=== PATIENT | female | born 1935 | race Caucasian/White ===

== ENCOUNTER 2018-08-09 14:18 | Emergency (ER) | payer MEDICARE, BC ==
[2018-08-09] MEDS ORDERED: IPRATROPIUM-ALBUTEROL 3 ML NEB INHALATION STA (15:26)
[2018-08-09] MEDS ORDERED: predniSONE 20 MG TAB PO STA (15:26)
--- NOTE | 2018-08-09 15:32 | ED ---
General Adult HPI - General Chief complaint: Upper Respiratory Infection Stated complaint: Cough Time Seen by Provider: 08/09/18 15:18 Source: patient Mode of arrival: ambulatory Limitations: no limitations - History of Present Illness Initial comments: Patient is an 83-year-old female presents with a chief complaint of a cough. Uses been going on for about a week. She states that she thinks she caught it from her grandson, and that there is been upper respiratory illness being passed around the household. Patient states that she has not had any fevers or difficulty breathing. She has tried Zyrtec and Robitussin for relief. Patient denies any chest pain or dyspnea, she denies abdominal pain, nausea or vomiting. Patient does not take any medications at home and does not have any known ALLERGIES patient states that she is admitted every day smoker, less than half a pack per day. - Related Data Home Medications Medication Instructions Recorded Confirmed guaiFENesin-DM 100-10MG/5ML 10 ml PO Q6H PRN 08/09/18 08/09/18 [Robitussin DM] Previous Rx's Medication Instructions Recorded Albuterol Inhaler [Ventolin Hfa 1 - 2 puff INHALATION Q4H #1 08/09/18 Inhaler] inhaler Azithromycin [Zithromax] 250 mg PO DIRECTED #6 tab 08/09/18 predniSONE 60 mg PO DAILY #12 tab 08/09/18 Allergies Allergy/AdvReac Type Severity Reaction Status Date / Time No Known Allergies Allergy Verified 08/09/18 15:50 Review of Systems ROS Statement: Those systems with pertinent positive or pertinent negative responses have been documented in the HPI. ROS Other: All systems not noted in ROS Statement are negative. Respiratory: Reports: cough. Denies: dyspnea Past Medical History Past Medical History: No Reported History History of Any Multi-Drug Resistant Organisms: None Reported Past Surgical History: No Surgical Hx Reported Past Psychological History: No Psychological Hx Reported Smoking Status: Current every day smoker Past Alcohol Use History: None Reported Past Drug Use History: None Reported General Exam Limitations: no limitations General appearance: alert, in no apparent distress Head exam: Present: atraumatic, normocephalic Eye exam: Present: normal appearance ENT exam: Present: normal exam Neck exam: Present: normal inspection Respiratory exam: Present: wheezes. Absent: respiratory distress, accessory muscle use, decreased breath sounds Cardiovascular Exam: Present: regular rate, normal rhythm GI/Abdominal exam: Present: soft. Absent: distended, tenderness Rectal exam: Present: deferred Extremities exam: Present: normal inspection Back exam: Present: normal inspection Neurological exam: Present: alert, oriented X3, CN II-XII intact, normal gait Psychiatric exam: Present: normal affect, normal mood Skin exam: Present: warm, dry, intact Course Vital Signs 08/09/18 08/09/18 08/09/18 14:31 15:40 16:06 Temperature 97.6 F Pulse Rate 92 92 96 Respiratory 20 Rate Blood Pressure 139/78 O2 Sat by Pulse 94 L Oximetry Medical Decision Making - Medical Decision Making Patient presents with a chief complaint of a cough. On initial evaluation, vitals are stable, patient is a no acute distress. She is alert and attentive. Patient appears very nontoxic, and is otherwise healthy. She does not report any dyspnea, or chest pain. She is ambulatory without assistance and without difficulty breathing. Patient to be evaluated with basic labs including chest x -ray. She was given an initial dose of steroids, and DuoNeb treatments. Final 5 PM Laboratory evaluation this patient is unremarkable. Chest x-ray shows COPD and a right upper lobe 8mm granuloma. Patient was informed of these results and instructed to follow up with primary care in 1-2 days. She is prescribed azithromycin, prednisone, and albuterol for treatment of bronchitis. Patient states that she feels improved after breathing treatments and steroids. - Lab Data Result diagrams: 08/09/18 15:30 08/09/18 15:30 Lab Results 08/09/18 08/09/18 Range/Units 15:30 15:30 WBC 8.9 (3.8-10.6) k/uL RBC 4.28 (3.80-5.40) m/uL Hgb 12.6 (11.4-16.0) gm/dL Hct 41.0 (34.0-46.0) % MCV 95.8 (80.0-100.0) fL MCH 29.4 (25.0-35.0) pg MCHC 30.7 L (31.0-37.0) g/dL RDW 13.4 (11.5-15.5) % Plt Count 468 H (150-450) k/uL Neutrophils % 58 % Lymphocytes % 28 % Monocytes % 7 % Eosinophils % 4 % Basophils % 1 % Neutrophils # 5.1 (1.3-7.7) k/uL Lymphocytes # 2.5 (1.0-4.8) k/uL Monocytes # 0.6 (0-1.0) k/uL Eosinophils # 0.3 (0-0.7) k/uL Basophils # 0.1 (0-0.2) k/uL Sodium 142 (137-145) mmol/L Potassium 5.0 (3.5-5.1) mmol/L Chloride 108 H (98-107) mmol/L Carbon Dioxide 23 (22-30) mmol/L Anion Gap 11 mmol/L BUN 20 H (7-17) mg/dL Creatinine 0.89 (0.52-1.04) mg/dL Est GFR (CKD-EPI)AfAm 70 (>60 ml/min/1.73 sqM) Est GFR (CKD-EPI)NonAf 61 (>60 ml/min/1.73 sqM) Glucose 95 (74-99) mg/dL Calcium 9.2 (8.4-10.2) mg/dL Disposition Clinical Impression: Bronchitis Disposition: HOME SELF-CARE Condition: Good Instructions: Upper Respiratory Infection (ED) Prescriptions: Albuterol Inhaler [Ventolin Hfa Inhaler] 1 - 2 puff INHALATION Q4H #1 inhaler Azithromycin [Zithromax] 250 mg PO DIRECTED #6 tab predniSONE 60 mg PO DAILY #12 tab Is patient prescribed a controlled substance at d/c from ED?: No Referrals: Nonstaff,Physician [Primary Care Provider] - 1-2 days Bennie Martinez MD [STAFF PHYSICIAN] - 1-2 days
[2018-08-09 15:54] LABS: Basophils # (A) 0.1 k/uL (0-0.2); Basophils % (A) 1 %; Eosinophils # (A) 0.3 k/uL (0-0.7); Eosinophils % (A) 4 %; HGB 12.6 gm/dL (11.4-16.0); Lymphocytes # (A) 2.5 k/uL (1.0-4.8); Lymphocytes % (A) 28 %; MCH 29.4 pg (25.0-35.0); MCHC 30.7 g/dL (31.0-37.0); MCV 95.8 fL (80.0-100.0); Mean Platelet Volume 6.7; Monocytes # (A) 0.6 k/uL (0-1.0); Monocytes % (A) 7 %; Neutrophils # (A) 5.1 k/uL (1.3-7.7); Neutrophils % (A) 58 %; Platelet Count 468 k/uL (150-450); RBC 4.28 m/uL (3.80-5.40); RDW 13.4 % (11.5-15.5); WBC 8.9 k/uL (3.8-10.6)
[2018-08-09 16:04] LABS: Calcium 9.2 mg/dL (8.4-10.2)
--- NOTE | 2018-08-09 16:26 | XR ---
EXAMINATION TYPE: XR chest 2V DATE OF EXAM: 08/09/2018 COMPARISON: NONE HISTORY: Cough TECHNIQUE: Frontal and lateral views of the chest are obtained. FINDINGS: There is no heart failure nor confluent pneumonic infiltrate. There is pulmonary hyperinfl ation. There are emphysematous changes in the upper lobes. There is flattening of the diaphragm. Hear t size is normal. Bony thorax is intact. There is 8 mm density over the right upper lobe on the front al view that could be a granuloma. IMPRESSION: COPD. No active cardiopulmonary disease. Right upper lobe granuloma.
[2018-08-09 17:20] VITALS: BP 102/56; PULSE 88; RESP 18; TEMP 98
== END 2018-08-09 17:17 | disposition home or self-care (01) ==
LOC: EC 14:18
DX: J44.9 Chronic obstructive pulmonary disease, unspecified (principal); J84.10 Pulmonary fibrosis, unspecified; F17.200 Nicotine dependence, unspecified, uncomplicated
CPT/HCPCS: 36415; 94640; 80048; 85025; 71046; 99284; J7512